=== PATIENT | male | born 1990 | race Caucasian/White ===

== ENCOUNTER 2024-01-15 13:40 | Emergency (ER) | payer OTHER ==
[~2024-01-15] VITALS: Ht 180.3 cm; Wt 74.4 kg
[2024-01-15 13:58] VITALS: BP_SYST 133; PULSE 65; RESP 16; TEMP 97.6; O2SAT 98
[2024-01-15] MEDS ORDERED: CEPH-548 PO (14:23)
[2024-01-15] MEDS ORDERED: IBUP-1969 PO (14:23)
[2024-01-15 14:29] VITALS: BP_SYST 133; PULSE 65; RESP 16; TEMP 97.6; O2SAT 98
== END 2024-01-15 14:31 | disposition home or self-care (01) ==
LOC: SED 13:40
DX: L03.312 Cellulitis of back [any part except buttock and flank] (principal); R21 Rash and other nonspecific skin eruption
CPT/HCPCS: 99283